=== PATIENT | male | born 1985 | race African-American/Black ===

== ENCOUNTER 2017-01-09 13:30 | Emergency (ER) | payer OTHER ==
[~2017-01-09] VITALS: Ht 193 cm; Wt 111.0 kg
[2017-01-09 13:34] VITALS: BP 169/89; PULSE 100; RESP 20; TEMP 98.2; O2SAT 96
[2017-01-09 13:58] VITALS: BP 123/84; PULSE 96
[2017-01-09] MEDS ORDERED: SODIUM CHLORIDE 0.9% FLUSH 10 ML FLUSH IVF PRN (14:00)
[2017-01-09] MEDS ORDERED: SODIUM CHLOR 0.9% 1000 ML INJ 1,000 ML IV ONE (14:00)
--- NOTE | 2017-01-09 14:07 | PD ---
HPI Chief Complaint: Pain: Acute or Chronic Time Seen by Provider: 13:58 Travel History International Travel<30 days: No Contact w/Intl Traveler<30days: No Traveled to known affect area: No History of Present Illness HPI 31 year old male presents to the emergency department for evaluation of "all over pain". Patient states the pain started in his bilateral knees on Sunday , 3 days ago and then moved to bilateral calves. Now, he states he also has pain in his bilateral shoulders and left chest. He is currently a resident at [facility] for ETOH abuse. He states he thinks he my have fibromyalgia and he states the physician at his center wants to rule out rhabdomyolysis. The patient reports history of alcohol abuse, bipolar disorder , hypertension. He denies any history of illicit drug use. Patient denies any fevers or chills. No headache. Patient denies any abdominal pain. He states he has been vomiting. He denies any vomiting episodes today, states he vomited once yesterday. Patient also reports diarrhea. No blood in the stool. He has no other complaints at this time. REPLACED BY [facility] Past Medical History Bipolar Disorder: Yes Hypertension: Yes Past Surgical History Cholecystectomy: Yes Tonsillectomy: Yes Other Surgery: Yes (left acl ) Social History Alcohol Use: No (quit ) Tobacco Use: No Substance Use: No (1/2 pack a day ) Allergies-Medications (Allergen,Severity, Reaction): Coded Allergies: No Known Allergies (Unverified , 01/09/17) Review of Systems Except as stated in HPI: all other systems reviewed are Neg Physical Exam Narrative GENERAL: Well-nourished, well-developed male patient, ambulatory. Afebrile. SKIN: Focused skin assessment warm/dry. HEAD: Normocephalic. Atraumatic. EYES: No scleral icterus. No injection or drainage. NECK: Supple, trachea midline. No JVD or lymphadenopathy. CARDIOVASCULAR: Regular rate and rhythm without murmurs, gallops, or rubs. Bilateral radial and pedal pulses are 2+. RESPIRATORY: Breath sounds equal bilaterally. No accessory muscle use. Lungs sounds are clear to auscultation. GASTROINTESTINAL: Abdomen soft, non-tender, nondistended. MUSCULOSKELETAL: No cyanosis, or edema. Bilateral upper and lower extremity strength 5/5. All extremities are neurovascularly intact. BACK: Nontender without obvious deformity. No CVA tenderness. Data Data Last Documented VS Vital Signs Date Time Temp Pulse Resp B/P Pulse Ox O2 Delivery O2 Flow Rate FiO2 01/09/17 13:59 97 16 01/09/17 13:58 123/84 01/09/17 13:58 95 Room Air 01/09/17 13:34 98.2 Orders Electrocardiogram (01/09/17 13:54) Basic Metabolic Panel (Bmp) (01/09/17 13:54) Ckmb (Isoenzyme) Profile (01/09/17 13:54) Complete Blood Count With Diff (01/09/17 13:54) Magnesium (Mg) (01/09/17 13:54) Troponin I (01/09/17 13:54) Ecg Monitoring (01/09/17 13:54) Bilateral Bp Monitoring (01/09/17 13:54) Iv Access Insert/Monitor (01/09/17 13:54) Oximetry (01/09/17 13:54) Oxygen Administration (01/09/17 13:54) Sodium Chloride 0.9% Flush (Ns Flush) (01/09/17 14:00) Sodium Chlor 0.9% 1000 Ml Inj (Ns 1000 M (01/09/17 14:00) Urinalysis - C+S If Indicated (01/09/17 13:55) CKMB (01/09/17 12:00) CKMB% (01/09/17 12:00) Labs Laboratory Tests Test 01/09/17 01/09/17 12:00 14:10 White Blood Count 8.5 TH/MM3 Red Blood Count 4.85 MIL/MM3 Hemoglobin 14.1 GM/DL Hematocrit 41.8 % Mean Corpuscular Volume 86.0 FL Mean Corpuscular Hemoglobin 29.0 PG Mean Corpuscular Hemoglobin 33.7 % Concent Red Cell Distribution Width 14.7 % Platelet Count 178 TH/MM3 Mean Platelet Volume 8.4 FL Neutrophils (%) (Auto) 76.0 % Lymphocytes (%) (Auto) 19.4 % Monocytes (%) (Auto) 3.4 % Eosinophils (%) (Auto) 0.8 % Basophils (%) (Auto) 0.4 % Neutrophils # (Auto) 6.4 TH/MM3 Lymphocytes # (Auto) 1.6 TH/MM3 Monocytes # (Auto) 0.3 TH/MM3 Eosinophils # (Auto) 0.1 TH/MM3 Basophils # (Auto) 0.0 TH/MM3 CBC Comment DIFF FINAL Differential Comment Sodium Level 140 MEQ/L Potassium Level 4.6 MEQ/L Chloride Level 106 MEQ/L Carbon Dioxide Level 26.0 MEQ/L Anion Gap 8 MEQ/L Blood Urea Nitrogen 16 MG/DL Creatinine 1.59 MG/DL Estimat Glomerular Filtration 62 ML/MIN Rate Random Glucose 159 MG/DL Calcium Level 8.7 MG/DL Magnesium Level 1.9 MG/DL Total Creatine Kinase 116 U/L Creatine Kinase MB 0.5 NG/ML Troponin I LESS THAN 0.02 NG/ML Urine Color YELLOW Urine Turbidity CLEAR Urine pH 6.5 Urine Specific [place] 1.016 Urine Protein NEG mg/dL Urine Glucose (UA) NEG mg/dL Urine Ketones NEG mg/dL Urine Occult Blood NEG Urine Nitrite NEG Urine Bilirubin NEG Urine Urobilinogen LESS THAN 2.0 MG/DL Urine Leukocyte Esterase NEG Urine RBC LESS THAN 1 /hpf Urine WBC LESS THAN 1 /hpf Microscopic Urinalysis Comment CULT NOT INDICATED MDM Medical Decision Making Medical Screen Exam Complete: Yes Emergency Medical Condition: Yes Medical Record Reviewed: Yes Differential Diagnosis Medical clearance versus electrolyte abnormality versus spasm versus rhabdomyolysis Narrative Course 31-year-old male presents to the emergency department for evaluation of generalized pain. He reports pain in his bilateral extremities, bilateral shoulders, left chest. Patient was sent to rule out rhabdomyolysis. I do not see any evidence of DVT based on exam and findings. CBC shows no acute abnormality. BMP shows creatinine of 1.59, blood glucose 159. CK is 116. Troponin is less than 0.02. Urine is negative. Patient is given Tylenol 650 g by mouth for his pain. He is able for discharge for outpatient follow-up. He verbalizes agreement and understanding. My attending physician, Dr. Duff, is aware of findings and agrees plan and disposition. The patient was discharged in stable condition with instructions, including return instructions and follow up instructions. Diagnosis Primary Impression: Generalized pain Referrals: Primary Care Physician call for appointment Patient Instructions: General Instructions, Leg Pain (ED) Additional Instructions: Follow-up with your primary care physician. Return to the emergency department for any acute worsening of symptoms. Med/Other Pt SpecificInfo: No Change to Meds Disposition: 01 DISCHARGE HOME Condition: Stable Sarah Murrell Jan 09, 2017 14:07
[2017-01-09 14:25] LABS: AUTOMATED NEUTROPHIL # 6.4 TH/MM3 (1.8-7.7); BASOPHIL % 0.4 % (0.0-2.0); EOSINOPHIL # 0.1 TH/MM3 (0-0.4); EOSINOPHIL % 0.8 % (0.0-4.0); HEMATOCRIT 41.8 % (39.0-51.0); HEMO FLAGS DIFF FINAL; LYMPH % 19.4 % (9.0-44.0); LYMPHOCYTE # 1.6 TH/MM3 (1.0-4.8); MEAN CORPUSCULAR HGB CONC 33.7 % (32.0-36.0); MONO % 3.4 % (0.0-8.0); PLATELET COUNT 178 TH/MM3 (150-450); RED BLOOD COUNT 4.85 MIL/MM3 (4.50-5.90); RED CELL DISTRIBUTION WIDTH 14.7 % (11.6-17.2); WHITE BLOOD COUNT 8.5 TH/MM3 (4.0-11.0)
[2017-01-09 14:40] LABS: BLOOD, URINE NEG (NEG); COMMENT (UR) CULT NOT INDICATED; CULTURE IF INDICATED CULT NOT INDICATED; GLUCOSE,URINE NEG (NEG); KETONE, URINE NEG (NEG); NITRITE,URINE NEG (NEG); PH, URINE 6.5 (5.0-8.5); URINE COLOR YELLOW (YELLW/STRAW)
[2017-01-09 15:24] LABS: ANION GAP 8 MEQ/L (5-15); BLOOD UREA NITROGEN 16 MG/DL (7-18); CHLORIDE 106 MEQ/L (98-107); CREATINE KINASE 116 U/L (39-308); GLOMERULAR FILTRATION RATE 62 ML/MIN (>89); MAGNESIUM 1.9 MG/DL (1.5-2.5); POTASSIUM 4.6 MEQ/L (3.5-5.1); SODIUM (NA) 140 MEQ/L (136-145)
[2017-01-09 15:37] LABS: CKMB 0.5 NG/ML (0.5-3.6)
[2017-01-09 15:55] VITALS: BP 123/59; PULSE 80; RESP 20; O2SAT 97
[2017-01-09] MEDS ORDERED: ACETAMINOPHEN 325 MG TAB PO ONE (16:00)
--- NOTE | 2017-01-10 09:58 | EKG ---
Date Performed: 01/09/2017 Time Performed: 14:02:23 PTAGE: 31 years EKG: Sinus rhythm MINIMAL VOLTAGE CRITERIA FOR LVH, CONSIDER NORMAL VARIANT BORDERLINE ECG NO PREVIOUS TRACING DOCTOR: Benedicto Hernandez Interpretating Date/Time 01/10/2017 09:58:02
== END 2017-01-09 16:28 | disposition home or self-care (01) ==
LOC: NEPE 13:30
DX: R52 Pain, unspecified (principal); I10 Essential (primary) hypertension
CPT/HCPCS: 80048; 81001; 82550; 82552; 83735; 84484; 85025; 93005; 99284; J7030